=== PATIENT | female | born 1955 | race Caucasian/White ===

== ENCOUNTER 2017-02-26 11:44 | Emergency (ER) | payer BC, OTHER ==
[2017-02-26 12:32] VITALS: BP 116/68
--- NOTE | 2017-02-26 13:04 | UC ---
Lower Extremity/Ankle HPI - HPI Summary HPI Summary: complaint of getting a laceration form a spkie in her left foot was seen at an urgent care 03/06/17 started on keflex without any improvement foot ahs beocmen ore painful and slava denies fever and chills taking tylenol with some relief - History of Current Complaint Chief Complaint: [facility] Stated Complaint: FOOT COMPLAINT Time Seen by Provider: 02/26/17 12:57 Hx Obtained From: Patient - Allergies/Home Medications Allergies/Adverse Reactions: Allergies Allergy/AdvReac Type Severity Reaction Status Date / Time No Known Allergies Allergy Verified 02/26/17 12:27 Home Medications: Home Medications Keflex 500 CAP* 500 mg PO BID 02/26/17 [History Confirmed 02/26/17] PMH/Surg Hx/FS Hx/Imm Hx Previously Healthy: Yes - Surgical History Surgical History: None - Family History Known Family History: Negative: Cardiac Disease, Hypertension, Diabetes - Social History Occupation: Employed Full-time Lives: With Family Alcohol Use: Daily Substance Use Type: None Smoking Status (MU): Never Smoked Tobacco - Immunization History Most Recent Tetanus Shot: 02/24/17 Review of Systems Constitutional: Negative Skin: Rash Eyes: Negative ENT: Negative Respiratory: Negative Cardiovascular: Negative Gastrointestinal: Negative Genitourinary: Negative Motor: Negative Neurovascular: Negative Musculoskeletal: Negative Neurological: Negative Psychological: Negative All Other Systems Reviewed And Are Negative: Yes Physical Exam Triage Information Reviewed: Yes Appearance: No Pain Distress, Well-Nourished, Thin Vital Signs: Initial Vital Signs Temp 97.8 F 02/26/17 12:28 Pulse 65 02/26/17 12:28 Resp 16 02/26/17 12:28 BP 116/68 02/26/17 12:28 Pulse Ox 100 02/26/17 12:28 Vital Signs Reviewed: Yes Eyes: Positive: Conjunctiva Clear ENT: Positive: Pharynx normal, TMs normal Neck: Positive: No Lymphadenopathy Respiratory: Positive: Lungs clear, Normal breath sounds, No respiratory distress, No accessory muscle use Cardiovascular: Positive: RRR, No Murmur, Pulses Normal Abdomen Description: Positive: Nontender, Soft Bowel Sounds: Positive: Present Musculoskeletal: Positive: Other: - LLE- edema throughout foot-area of erythem surrounding healing laceration below great toe that measures 4x4 cm Neurological: Positive: Alert Psychological Exam: Normal Skin Exam: Normal Lower Extremity Course/Dx - Course Course Of Treatment: exam completed. cellulitis surrounding healing wound- will stop keflex and start bactrim to treat infection. no abscess underneath wound. followup with PCP - Differential Dx/Diagnosis Differential Diagnosis/HQI/PQRI: Cellulitis Provider Diagnoses: cellulitis left foot Discharge - Discharge Plan Condition: Stable Disposition: HOME Patient Education Materials: Cellulitis (ED) Additional Instructions: Please start antibiotic as directed Increase fluids and rest Take acetaminophen or ibuprofen for fever or pain Please review your discharge instructions. If your symptoms do not improve please call your primary care provider or return to urgent care. CELLULITIS What is Cellulitis? Cellulitis is a bacterial infection of the skin and, sometimes, of the tissues beneath the skin. The skin normally has many types of bacteria on it, but intact skin is an effective barrier that keeps bacteria from entering and growing within the body. When there is a break in the skin, bacteria can enter the body and grow there, causing infection. The infection usually affects outer layers of the skin first, and then spreads deeper into body tissues. Cellulitis can affect any area of the body covered by skin, but it is most common on the face or lower part of the legs. Symptoms Might Include: Skin redness that increases in size as the infection spreads Tight, glossy, "stretched" appearance of the skin Pain or tenderness of the area The affected area may be warm or hot to the touch A thin red line (along a vein) from the cellulitis toward the heart Fever Chills, shaking Muscle aches pains Joint stiffness because of swelling around a joint Treatment Recommendations: The healthcare provider may have prescribed an antibiotic medicine. The medicine should be taken until it is completely gone, even if you are feeling better. If you stop taking the medicine early, the infection may not be completely gone, and the medication may not work the next time. If the infection is on your arm or leg, keep it elevated. You may use warm, wet compresses to relieve the pain and help healing. Soak a clean cloth in warm water, wring it out a little, and apply it to the affected site. Leave the soak in place for 15 minutes and repeat often throughout the day. Rest until the fever is gone and the pain and redness have lessened. You may take ibuprofen (Motrin, Advil), or acetaminophen (Tylenol) for pain. These will help ease some of the symptoms but will not cure the infection. Call Your Doctor or Return Here IF: Your fever does not go down with treatment, or it increases to more than 101 F. You are not starting to get better with the treatment within 24 to 36 hours. You have increasing pain, swelling, or chills. You feel drowsy and lethargic, or you have vomiting or diarrhea. You find the redness is spreading or there are red streaks coming from the infected area. The joint or bone under the infected skin becomes painful after the skin has started to heal. You have any new symptoms that worry you.
== END 2017-02-26 13:13 | disposition home or self-care (01) ==
LOC: UCEAST 11:44
DX: L03.116 Cellulitis of left lower limb (principal)
CPT/HCPCS: 99212; G0463